=== PATIENT | female | born 1955 | race Caucasian/White ===

== ENCOUNTER 2016-05-04 15:26 | Inpatient (IN) | payer MEDICARE, OTHER, MEDICAID ==
[~2016-05-04] VITALS: Ht 154.9 cm; Wt 68.0 kg
[2016-05-04 16:20] LABS: BASO % 0.1 % (0.1-1.2); EOS # 0.1 10_X3_uL (0.0-0.4); EOS % 0.2 % (0.7-5.8); GRAN # 19.5 10_X3_uL (1.6-6.1); GRAN % 91.5 % (34.0-71.1); HEMATOCRIT 46.4 % (34-45); HEMOGLOBIN 15.8 g/dL (11.2-15.7); LYMPH # 1.2 10_X3_uL (1.2-3.7); LYMPH % 5.5 % (19.3-51.7); MEAN CORPUSCULAR HEMOGLOBIN 30.1 pg (27.0-33.0); MEAN CORPUSCULAR HGB CONC 34.1 g/dL (32.0-36.0); MEAN CORPUSCULAR VOLUME 88.4 fL (79-95); MEAN PLATELET VOLUME 11.5 fl (7.5-11.5); MONO # 0.6 10_X3_uL (0.2-0.9); MONO % 2.7 % (4.7-12.5); PLATELET COUNT 319 x10_3/uL (182-369); RED BLOOD COUNT 5.25 x10_6/uL (3.9-5.2)
[2016-05-04 16:38] LABS: WHITE BLOOD COUNT 21.3 x10_3/uL (4.0-10.0)
[2016-05-04 16:40] LABS: ALBUMIN 3.8 gm/dL (3.4-5.0); ALKALINE PHOSPHATASE 82 U/L (50-136); ALT/SGPT 8 U/L (3.5-33.9); AST/SGOT 7 U/L (7.04-26.96); BILIRUBIN,TOTAL < 0.15 mg/dL (0.0-1.0); BLOOD UREA NITROGEN 34 mg/dL (7-18); CALCIUM 8.7 mg/dL (8.7-10.7); CARBON DIOXIDE 21 mmol/L (21-32); CREATINE KINASE 19 U/L (21-215); CREATININE 0.8 mg/dL (0.6-1.3); GLUCOSE,RANDOM 107 mg/dL (70-99); POTASSIUM 3.9 mmol/L (3.5-5.1); SODIUM 141 mmol/L (136-145); TOTAL PROTEIN 6.2 gm/dL (6.4-8.2)
[2016-05-06 06:42] LABS: HEMATOCRIT 42.9 % (34-45); HEMOGLOBIN 14.4 g/dL (11.2-15.7); MEAN CORPUSCULAR HEMOGLOBIN 29.4 pg (27.0-33.0); MEAN CORPUSCULAR HGB CONC 33.6 g/dL (32.0-36.0); MEAN CORPUSCULAR VOLUME 87.6 fL (79-95); MEAN PLATELET VOLUME 12.3 fl (7.5-11.5); RED BLOOD COUNT 4.9 x10_6/uL (3.9-5.2); WHITE BLOOD COUNT 19.8 x10_3/uL (4.0-10.0)
[2016-05-06 07:01] LABS: ALBUMIN 3.3 gm/dL (3.4-5.0); ALKALINE PHOSPHATASE 74 U/L (50-136); ALT/SGPT 11 U/L (3.5-33.9); AST/SGOT 9 U/L (7.04-26.96); CALCIUM 8.6 mg/dL (8.7-10.7); CARBON DIOXIDE 20 mmol/L (21-32); CREATININE 0.6 mg/dL (0.6-1.3); GLUCOSE,RANDOM 139 mg/dL (70-99); POTASSIUM 4.7 mmol/L (3.5-5.1); SODIUM 141 mmol/L (136-145); TOTAL PROTEIN 5.7 gm/dL (6.4-8.2)
[2016-05-06 07:20] LABS: BILIRUBIN,TOTAL < 0.15 mg/dL (0.0-1.0); BLOOD UREA NITROGEN 24 mg/dL (7-18)
[2016-05-07 06:40] LABS: HEMATOCRIT 42.4 % (34-45); HEMOGLOBIN 14.5 g/dL (11.2-15.7); MEAN CORPUSCULAR HEMOGLOBIN 30.1 pg (27.0-33.0); MEAN CORPUSCULAR HGB CONC 34.2 g/dL (32.0-36.0); MEAN PLATELET VOLUME 11.7 fl (7.5-11.5); RED BLOOD COUNT 4.82 x10_6/uL (3.9-5.2); RED CELL DISTRIBUTION WIDTH 14.9 % (11.7-14.4); WHITE BLOOD COUNT 19.3 x10_3/uL (4.0-10.0)
[2016-05-07 07:08] LABS: BLOOD UREA NITROGEN 24 mg/dL (7-18); CALCIUM 8.6 mg/dL (8.7-10.7); CARBON DIOXIDE 23 mmol/L (21-32); CREATININE 0.7 mg/dL (0.6-1.3); GLUCOSE,RANDOM 112 mg/dL (70-99); POTASSIUM 4.4 mmol/L (3.5-5.1); SODIUM 139 mmol/L (136-145)
[2016-05-08 07:17] LABS: HEMATOCRIT 42.4 % (34-45); HEMOGLOBIN 14.2 g/dL (11.2-15.7); MEAN CORPUSCULAR HEMOGLOBIN 29.8 pg (27.0-33.0); MEAN CORPUSCULAR HGB CONC 33.5 g/dL (32.0-36.0); MEAN CORPUSCULAR VOLUME 88.9 fL (79-95); MEAN PLATELET VOLUME 11.7 fl (7.5-11.5); RED BLOOD COUNT 4.77 x10_6/uL (3.9-5.2); RED CELL DISTRIBUTION WIDTH 15.2 % (11.7-14.4)
[2016-05-08 10:17] LABS: BLOOD UREA NITROGEN 27 mg/dL (7-18); CALCIUM 8.5 mg/dL (8.7-10.7); CARBON DIOXIDE 24 mmol/L (21-32); CREATININE 0.6 mg/dL (0.6-1.3); GLUCOSE,RANDOM 111 mg/dL (70-99); POTASSIUM 5.1 mmol/L (3.5-5.1); SODIUM 142 mmol/L (136-145)
== END 2016-05-08 13:10 | disposition home or self-care (01) | DRG 192 ==
LOC: ER 15:26 → MS 20:59 → UNDODEPER 05-07 08:23 → MS 05-08 13:10
PROVIDERS: Emergency Medicine; Family Medicine; ADMIT Family Medicine
DX: J44.1 Chronic obstructive pulmonary disease with (acute) exacerbation (principal); J20.9 Acute bronchitis, unspecified; J44.0 Chronic obstructive pulmonary disease with (acute) lower respiratory infection; F41.9 Anxiety disorder, unspecified; D72.829 Elevated white blood cell count, unspecified; M54.40 Lumbago with sciatica, unspecified side; G89.29 Other chronic pain; M51.36 Other intervertebral disc degeneration, lumbar region; R91.8 Other nonspecific abnormal finding of lung field; R52 Pain, unspecified; Z83.3 Family history of diabetes mellitus; Z80.9 Family history of malignant neoplasm, unspecified; Z99.81 Dependence on supplemental oxygen
CPT/HCPCS: 36415; 71020; 71250; 72131; 80048; 80053; 82550; 82553; 83605; 83880; 85025; 86738; 87040; 87400; 87449; 93005; 94640; 94664; 96365; 96375; 99070; 99284; 99285-25; J2930

== ENCOUNTER 2016-05-04 15:26 | Emergency (ER) | payer MEDICARE, OTHER | END 2016-05-04 20:59 | disposition other institution (70) | LOC: ER 15:26 | DX: J44.0 Chronic obstructive pulmonary disease with (acute) lower respiratory infection (principal); J18.9 Pneumonia, unspecified organism; R00.0 Tachycardia, unspecified; I50.9 Heart failure, unspecified; F17.210 Nicotine dependence, cigarettes, uncomplicated; Z99.81 Dependence on supplemental oxygen | CPT/HCPCS: 99284; 99285-25 ==

== ENCOUNTER 2016-05-13 15:23 | Emergency (ER) | payer MEDICARE, OTHER | END 2016-05-13 17:20 | disposition other institution (70) | LOC: ER 15:23 | DX: J44.0 Chronic obstructive pulmonary disease with (acute) lower respiratory infection (principal); J18.9 Pneumonia, unspecified organism; J44.1 Chronic obstructive pulmonary disease with (acute) exacerbation; I50.9 Heart failure, unspecified; F17.210 Nicotine dependence, cigarettes, uncomplicated; Z79.899 Other long term (current) drug therapy; Z99.81 Dependence on supplemental oxygen | CPT/HCPCS: 99285; 99285-25 ==

== ENCOUNTER 2016-05-13 15:23 | Inpatient (IN) | payer MEDICARE, MEDICAID, OTHER ==
[~2016-05-13] VITALS: Ht 154.9 cm; Wt 70.0 kg
[2016-05-13 15:58] LABS: BASO % 0.1 % (0.1-1.2); EOS # 0.6 10_X3_uL (0.0-0.4); EOS % 2.8 % (0.7-5.8); GRAN # 15.1 10_X3_uL (1.6-6.1); GRAN % 66.9 % (34.0-71.1); HEMATOCRIT 41.2 % (34-45); HEMOGLOBIN 13.7 g/dL (11.2-15.7); LYMPH # 4.8 10_X3_uL (1.2-3.7); LYMPH % 21.1 % (19.3-51.7); MEAN CORPUSCULAR HEMOGLOBIN 30.1 pg (27.0-33.0); MEAN CORPUSCULAR HGB CONC 33.3 g/dL (32.0-36.0); MEAN CORPUSCULAR VOLUME 90.5 fL (79-95); MEAN PLATELET VOLUME 11.1 fl (7.5-11.5); MONO # 2.1 10_X3_uL (0.2-0.9); MONO % 9.1 % (4.7-12.5); PLATELET COUNT 220 x10_3/uL (182-369); RED BLOOD COUNT 4.55 x10_6/uL (3.9-5.2); RED CELL DISTRIBUTION WIDTH 14.9 % (11.7-14.4)
[2016-05-13 16:00] LABS: WHITE BLOOD COUNT 22.6 x10_3/uL (4.0-10.0)
[2016-05-13 16:12] LABS: ALBUMIN 3.8 gm/dL (3.4-5.0); ALKALINE PHOSPHATASE 86 U/L (50-136); ALT/SGPT 17 U/L (3.5-33.9); AST/SGOT 9 U/L (7.04-26.96); BILIRUBIN,TOTAL 0.24 mg/dL (0.0-1.0); BLOOD UREA NITROGEN 22 mg/dL (7-18); CALCIUM 9.2 mg/dL (8.7-10.7); CARBON DIOXIDE 24 mmol/L (21-32); CREATINE KINASE 31 U/L (21-215); CREATININE 0.6 mg/dL (0.6-1.3); GLUCOSE,RANDOM 108 mg/dL (70-99); POTASSIUM 4.4 mmol/L (3.5-5.1); SODIUM 135 mmol/L (136-145); TOTAL PROTEIN 6.7 gm/dL (6.4-8.2)
[2016-05-13 16:33] LABS: URINE BILIRUBIN NEGATIVE (NEGATIVE); URINE BLOOD TRACE (NEGATIVE); URINE GLUCOSE (UA) NORMAL (NORMAL); URINE KETONE NEGATIVE (NEGATIVE); URINE LEUKOCYTE ESTERASE NEGATIVE (NEGATIVE); URINE NITRATE NEGATIVE (NEGATIVE); URINE PROTEIN NEGATIVE (NEGATIVE); UROBILINOGEN NORMAL mg/dL (<1.0)
[2016-05-13 16:46] LABS: URINE BACTERIA TRACE (NONE SEEN); URINE RBC 0-5 /[HPF] (0-2); URINE SQUAMOUS EPITHELIAL CELL 0-10 /[HPF] (NONE SEEN); URINE WBC 0-5 /[HPF] (0-5)
[2016-05-15 06:56] LABS: HEMATOCRIT 38.6 % (34-45); HEMOGLOBIN 12.6 g/dL (11.2-15.7); MEAN CORPUSCULAR HEMOGLOBIN 29.9 pg (27.0-33.0); MEAN CORPUSCULAR HGB CONC 32.6 g/dL (32.0-36.0); MEAN CORPUSCULAR VOLUME 91.5 fL (79-95); MEAN PLATELET VOLUME 11.6 fl (7.5-11.5); RED BLOOD COUNT 4.22 x10_6/uL (3.9-5.2); WHITE BLOOD COUNT 18.9 x10_3/uL (4.0-10.0)
[2016-05-15 07:08] LABS: BLOOD UREA NITROGEN 20 mg/dL (7-18); CALCIUM 8.9 mg/dL (8.7-10.7); CARBON DIOXIDE 23 mmol/L (21-32); CREATININE 0.8 mg/dL (0.6-1.3); GLUCOSE,RANDOM 173 mg/dL (70-99); POTASSIUM 4.1 mmol/L (3.5-5.1); SODIUM 142 mmol/L (136-145)
[2016-05-16 06:48] LABS: BLOOD UREA NITROGEN 23 mg/dL (7-18); CARBON DIOXIDE 23 mmol/L (21-32); CREATININE 0.6 mg/dL (0.6-1.3); GLUCOSE,RANDOM 157 mg/dL (70-99); POTASSIUM 4.3 mmol/L (3.5-5.1); SODIUM 142 mmol/L (136-145)
[2016-05-16 07:07] LABS: HEMATOCRIT 39.5 % (34-45); MEAN CORPUSCULAR HEMOGLOBIN 29.9 pg (27.0-33.0); MEAN CORPUSCULAR HGB CONC 32.9 g/dL (32.0-36.0); MEAN CORPUSCULAR VOLUME 90.8 fL (79-95); MEAN PLATELET VOLUME 11.6 fl (7.5-11.5); RED BLOOD COUNT 4.35 x10_6/uL (3.9-5.2); RED CELL DISTRIBUTION WIDTH 15.5 % (11.7-14.4); WHITE BLOOD COUNT 19.3 x10_3/uL (4.0-10.0)
[2016-05-17 07:29] LABS: HEMATOCRIT 41.3 % (34-45); HEMOGLOBIN 13.5 g/dL (11.2-15.7); MEAN CORPUSCULAR HEMOGLOBIN 29.3 pg (27.0-33.0); MEAN CORPUSCULAR HGB CONC 32.7 g/dL (32.0-36.0); MEAN CORPUSCULAR VOLUME 89.8 fL (79-95); RED BLOOD COUNT 4.6 x10_6/uL (3.9-5.2); RED CELL DISTRIBUTION WIDTH 15.9 % (11.7-14.4); WHITE BLOOD COUNT 14.7 x10_3/uL (4.0-10.0)
[2016-05-17 07:47] LABS: BLOOD UREA NITROGEN 23 mg/dL (7-18); CARBON DIOXIDE 24 mmol/L (21-32); CREATININE 0.6 mg/dL (0.6-1.3); GLUCOSE,RANDOM 101 mg/dL (70-99); POTASSIUM 4.5 mmol/L (3.5-5.1); SODIUM 140 mmol/L (136-145)
[2016-05-18 07:04] LABS: HEMATOCRIT 40.3 % (34-45); HEMOGLOBIN 13.1 g/dL (11.2-15.7); MEAN CORPUSCULAR HEMOGLOBIN 29.4 pg (27.0-33.0); MEAN CORPUSCULAR HGB CONC 32.5 g/dL (32.0-36.0); MEAN CORPUSCULAR VOLUME 90.6 fL (79-95); MEAN PLATELET VOLUME 10.7 fl (7.5-11.5); RED BLOOD COUNT 4.45 x10_6/uL (3.9-5.2); RED CELL DISTRIBUTION WIDTH 15.8 % (11.7-14.4); WHITE BLOOD COUNT 13.2 x10_3/uL (4.0-10.0)
[2016-05-18 07:19] LABS: BLOOD UREA NITROGEN 26 mg/dL (7-18); CALCIUM 8.6 mg/dL (8.7-10.7); CARBON DIOXIDE 25 mmol/L (21-32); CREATININE 0.6 mg/dL (0.6-1.3); GLUCOSE,RANDOM 102 mg/dL (70-99); POTASSIUM 4.4 mmol/L (3.5-5.1); SODIUM 140 mmol/L (136-145)
== END 2016-05-18 11:05 | disposition home or self-care (01) | DRG 190 ==
LOC: ER 15:23 → MS 17:20
PROVIDERS: Internal Medicine; ADMIT Family Medicine
PROC: 3E0234Z Introduction of Serum, Toxoid and Vaccine into Muscle, Percutaneous Approach (ICD-10-PCS; principal; 2016-05-14)
DX: J44.0 Chronic obstructive pulmonary disease with (acute) lower respiratory infection (principal); J18.9 Pneumonia, unspecified organism; K92.1 Melena; J44.1 Chronic obstructive pulmonary disease with (acute) exacerbation; D72.829 Elevated white blood cell count, unspecified; I11.0 Hypertensive heart disease with heart failure; I50.9 Heart failure, unspecified; R35.0 Frequency of micturition; G89.29 Other chronic pain; M54.9 Dorsalgia, unspecified; R63.5 Abnormal weight gain; F41.9 Anxiety disorder, unspecified; F32.9 Major depressive disorder, single episode, unspecified; R00.0 Tachycardia, unspecified; R00.2 Palpitations; M51.36 Other intervertebral disc degeneration, lumbar region; M48.06 Spinal stenosis, lumbar region; M25.50 Pain in unspecified joint; R11.10 Vomiting, unspecified; R51 Headache; F17.210 Nicotine dependence, cigarettes, uncomplicated; Z79.899 Other long term (current) drug therapy; Z90.710 Acquired absence of both cervix and uterus; Z80.3 Family history of malignant neoplasm of breast; Z82.3 Family history of stroke; Z68.29 Body mass index [BMI] 29.0-29.9, adult; Z23 Encounter for immunization
CPT/HCPCS: 36415; 71010; 80048; 80053; 81001; 82550; 82553; 83605; 83880; 85025; 85379; 86738; 87040; 87449; 93005; 94640; 94664; 96365; 96375; 99070; 99285; 99285-25; J2930

== ENCOUNTER 2016-05-20 13:38 | Emergency (ER) | payer MEDICARE, OTHER, MEDICAID | END 2016-05-20 15:32 | disposition home or self-care (01) | LOC: ER 13:38 | DX: J44.0 Chronic obstructive pulmonary disease with (acute) lower respiratory infection (principal); J20.9 Acute bronchitis, unspecified; J44.1 Chronic obstructive pulmonary disease with (acute) exacerbation; I10 Essential (primary) hypertension; F17.210 Nicotine dependence, cigarettes, uncomplicated; Z79.899 Other long term (current) drug therapy | CPT/HCPCS: 71020; 94664; 96372; 99284; 99284-25 ==

== ENCOUNTER 2016-05-23 10:39 | Inpatient (IN) | payer MEDICARE, MEDICAID, OTHER ==
[~2016-05-23] VITALS: Ht 152.4 cm; Wt 64.0 kg
[2016-05-23 12:05] LABS: BASO % 0.2 % (0.1-1.2); EOS % 0.3 % (0.7-5.8); GRAN # 6.9 10_X3_uL (1.6-6.1); GRAN % 78.6 % (34.0-71.1); HEMATOCRIT 44.5 % (34-45); HEMOGLOBIN 15.1 g/dL (11.2-15.7); LYMPH # 1.1 10_X3_uL (1.2-3.7); MEAN CORPUSCULAR HEMOGLOBIN 29.6 pg (27.0-33.0); MEAN CORPUSCULAR HGB CONC 33.9 g/dL (32.0-36.0); MEAN CORPUSCULAR VOLUME 87.3 fL (79-95); MEAN PLATELET VOLUME 10.5 fl (7.5-11.5); MONO # 0.8 10_X3_uL (0.2-0.9); MONO % 8.9 % (4.7-12.5); PLATELET COUNT 225 x10_3/uL (182-369); RED CELL DISTRIBUTION WIDTH 15.6 % (11.7-14.4); WHITE BLOOD COUNT 8.8 x10_3/uL (4.0-10.0)
[2016-05-23 12:22] LABS: ALBUMIN 3.6 gm/dL (3.4-5.0); ALKALINE PHOSPHATASE 88 U/L (50-136); ALT/SGPT 20 U/L (3.5-33.9); AST/SGOT 15 U/L (7.04-26.96); BILIRUBIN,TOTAL 0.45 mg/dL (0.0-1.0); BLOOD UREA NITROGEN 15 mg/dL (7-18); CALCIUM 8.8 mg/dL (8.7-10.7); CARBON DIOXIDE 23 mmol/L (21-32); CREATININE 0.6 mg/dL (0.6-1.3); GLUCOSE,RANDOM 98 mg/dL (70-99); POTASSIUM 3.8 mmol/L (3.5-5.1); SODIUM 130 mmol/L (136-145)
[2016-05-23 13:26] LABS: ARTERIAL BLD GAS O2 SATURATION 91.3 % (94-98); ARTERIAL BLOOD GAS BASE EXCESS -0.2 mmol/L (-2.0-3.0); ARTERIAL BLOOD GAS HCO3 23.4 mmol/L (22-26); ARTERIAL BLOOD GAS PCO2 36.8 mmHg (32-45); ARTERIAL BLOOD GAS pH 7.42 (7.35-7.45)
[2016-05-24 07:38] LABS: BASO % 0.2 % (0.1-1.2); EOS # 0.2 10_X3_uL (0.0-0.4); EOS % 3.4 % (0.7-5.8); GRAN # 3.8 10_X3_uL (1.6-6.1); GRAN % 70.8 % (34.0-71.1); HEMATOCRIT 41.5 % (34-45); HEMOGLOBIN 14.1 g/dL (11.2-15.7); LYMPH # 0.6 10_X3_uL (1.2-3.7); LYMPH % 11.7 % (19.3-51.7); MEAN CORPUSCULAR HEMOGLOBIN 29.4 pg (27.0-33.0); MEAN CORPUSCULAR VOLUME 86.5 fL (79-95); MEAN PLATELET VOLUME 10.9 fl (7.5-11.5); MONO # 0.7 10_X3_uL (0.2-0.9); MONO % 13.9 % (4.7-12.5); PLATELET COUNT 214 x10_3/uL (182-369); RED CELL DISTRIBUTION WIDTH 15.3 % (11.7-14.4); WHITE BLOOD COUNT 5.3 x10_3/uL (4.0-10.0)
[2016-05-24 07:55] LABS: BLOOD UREA NITROGEN 15 mg/dL (7-18); CALCIUM 8.6 mg/dL (8.7-10.7); CARBON DIOXIDE 20 mmol/L (21-32); CREATININE 0.5 mg/dL (0.6-1.3); GLUCOSE,RANDOM 113 mg/dL (70-99); POTASSIUM 4.4 mmol/L (3.5-5.1); SODIUM 134 mmol/L (136-145)
[2016-05-25 07:29] LABS: HEMATOCRIT 37.9 % (34-45); HEMOGLOBIN 12.3 g/dL (11.2-15.7); MEAN CORPUSCULAR HEMOGLOBIN 28.9 pg (27.0-33.0); MEAN CORPUSCULAR HGB CONC 32.5 g/dL (32.0-36.0); MEAN CORPUSCULAR VOLUME 89.2 fL (79-95); MEAN PLATELET VOLUME 10.9 fl (7.5-11.5); RED BLOOD COUNT 4.25 x10_6/uL (3.9-5.2); RED CELL DISTRIBUTION WIDTH 15.5 % (11.7-14.4); WHITE BLOOD COUNT 7.6 x10_3/uL (4.0-10.0)
[2016-05-25 07:47] LABS: BLOOD UREA NITROGEN 17 mg/dL (7-18); CALCIUM 8.1 mg/dL (8.7-10.7); CARBON DIOXIDE 22 mmol/L (21-32); CREATININE 0.6 mg/dL (0.6-1.3); GLUCOSE,RANDOM 75 mg/dL (70-99); POTASSIUM 4.2 mmol/L (3.5-5.1); SODIUM 136 mmol/L (136-145)
[2016-05-27 09:46] LABS: HEMATOCRIT 44.6 % (34-45); HEMOGLOBIN 15.6 g/dL (11.2-15.7); MEAN CORPUSCULAR HEMOGLOBIN 30.6 pg (27.0-33.0); MEAN CORPUSCULAR VOLUME 87.6 fL (79-95); RED BLOOD COUNT 5.09 x10_6/uL (3.9-5.2); RED CELL DISTRIBUTION WIDTH 15.6 % (11.7-14.4); WHITE BLOOD COUNT 9.7 x10_3/uL (4.0-10.0)
[2016-05-27 10:53] LABS: BLOOD UREA NITROGEN 10 mg/dL (7-18); CARBON DIOXIDE 26 mmol/L (21-32); CREATININE 0.7 mg/dL (0.6-1.3); GLUCOSE,RANDOM 75 mg/dL (70-99); POTASSIUM 4.2 mmol/L (3.5-5.1); SODIUM 135 mmol/L (136-145)
== END 2016-05-27 15:00 | disposition home or self-care (01) | DRG 194 ==
LOC: ER 10:39 → MS 14:59 → UNDODEPER 05-26 15:41 → MS 05-27 15:00
PROVIDERS: Emergency Medicine; Family Medicine; ADMIT Family Medicine
DX: J10.1 Influenza due to other identified influenza virus with other respiratory manifestations (principal); J44.1 Chronic obstructive pulmonary disease with (acute) exacerbation; Z99.81 Dependence on supplemental oxygen; I10 Essential (primary) hypertension; Z79.899 Other long term (current) drug therapy; F41.9 Anxiety disorder, unspecified; F17.210 Nicotine dependence, cigarettes, uncomplicated
CPT/HCPCS: 36415; 36600; 71020; 80048; 80053; 82803; 83605; 85025; 86738; 87040; 87070; 87205; 87400; 87449; 93005; 94640; 94664; 96365; 96375; 99070; 99284; 99284-25; J2930

== ENCOUNTER 2016-05-23 10:39 | Emergency (ER) | payer MEDICARE, OTHER | END 2016-05-23 14:59 | disposition other institution (70) | LOC: ER 10:39 | DX: J44.0 Chronic obstructive pulmonary disease with (acute) lower respiratory infection (principal); J20.9 Acute bronchitis, unspecified; J44.1 Chronic obstructive pulmonary disease with (acute) exacerbation; J10.1 Influenza due to other identified influenza virus with other respiratory manifestations; I11.0 Hypertensive heart disease with heart failure; I50.9 Heart failure, unspecified; F17.210 Nicotine dependence, cigarettes, uncomplicated; Z90.710 Acquired absence of both cervix and uterus; Z79.899 Other long term (current) drug therapy | CPT/HCPCS: 99284; 99284-25 ==

== ENCOUNTER 2016-07-01 15:19 | Emergency (ER) | payer MEDICARE, OTHER | END 2016-07-01 16:30 | disposition home or self-care (01) | LOC: ER 15:19 | DX: J44.0 Chronic obstructive pulmonary disease with (acute) lower respiratory infection (principal); J20.9 Acute bronchitis, unspecified; I10 Essential (primary) hypertension; Z90.710 Acquired absence of both cervix and uterus; F17.210 Nicotine dependence, cigarettes, uncomplicated | CPT/HCPCS: 71020; 94664; 96372; 99283-25; 99284 ==

== ENCOUNTER 2016-07-22 07:55 | Inpatient (IN) | payer MEDICARE, OTHER ==
[~2016-07-22] VITALS: Ht 154.9 cm; Wt 62.0 kg
[2016-07-22 08:26] LABS: BASO # 0.1 10_X3_uL (0.0-0.1); EOS # 1.1 10_X3_uL (0.0-0.4); EOS % 10.1 % (0.7-5.8); GRAN % 66.4 % (34.0-71.1); HEMATOCRIT 42.1 % (34-45); LYMPH # 1.7 10_X3_uL (1.2-3.7); LYMPH % 16.3 % (19.3-51.7); MEAN CORPUSCULAR HEMOGLOBIN 29.2 pg (27.0-33.0); MEAN CORPUSCULAR HGB CONC 33.3 g/dL (32.0-36.0); MEAN CORPUSCULAR VOLUME 87.7 fL (79-95); MEAN PLATELET VOLUME 11.3 fl (7.5-11.5); MONO # 0.7 10_X3_uL (0.2-0.9); MONO % 6.2 % (4.7-12.5); PLATELET COUNT 359 x10_3/uL (182-369); RED CELL DISTRIBUTION WIDTH 14.6 % (11.7-14.4); WHITE BLOOD COUNT 10.6 x10_3/uL (4.0-10.0)
[2016-07-22 08:39] LABS: BLOOD UREA NITROGEN 11 mg/dL (7-18); CALCIUM 9.4 mg/dL (8.7-10.7); CARBON DIOXIDE 21 mmol/L (21-32); CREATINE KINASE 33 U/L (21-215); CREATININE 0.6 mg/dL (0.6-1.3); GLUCOSE,RANDOM 105 mg/dL (70-99); POTASSIUM 3.6 mmol/L (3.5-5.1); SODIUM 142 mmol/L (136-145)
[2016-07-24 06:21] LABS: HEMATOCRIT 42.3 % (34-45); HEMOGLOBIN 13.8 g/dL (11.2-15.7); MEAN CORPUSCULAR HEMOGLOBIN 28.8 pg (27.0-33.0); MEAN CORPUSCULAR HGB CONC 32.6 g/dL (32.0-36.0); MEAN CORPUSCULAR VOLUME 88.1 fL (79-95); MEAN PLATELET VOLUME 11.5 fl (7.5-11.5); RED BLOOD COUNT 4.8 x10_6/uL (3.9-5.2); RED CELL DISTRIBUTION WIDTH 14.6 % (11.7-14.4); WHITE BLOOD COUNT 10.5 x10_3/uL (4.0-10.0)
[2016-07-24 06:32] LABS: CALCIUM 9.1 mg/dL (8.7-10.7); CARBON DIOXIDE 21 mmol/L (21-32); CREATININE 0.8 mg/dL (0.6-1.3); GLUCOSE,RANDOM 170 mg/dL (70-99); SODIUM 137 mmol/L (136-145)
[2016-07-24 07:05] LABS: BLOOD UREA NITROGEN 20 mg/dL (7-18)
[2016-07-24 07:06] LABS: POTASSIUM 5.1 mmol/L (3.5-5.1)
[2016-07-25 07:02] LABS: HEMATOCRIT 42.3 % (34-45); HEMOGLOBIN 13.8 g/dL (11.2-15.7); MEAN CORPUSCULAR HEMOGLOBIN 29.2 pg (27.0-33.0); MEAN CORPUSCULAR HGB CONC 32.6 g/dL (32.0-36.0); MEAN CORPUSCULAR VOLUME 89.4 fL (79-95); MEAN PLATELET VOLUME 11.7 fl (7.5-11.5); RED BLOOD COUNT 4.73 x10_6/uL (3.9-5.2); RED CELL DISTRIBUTION WIDTH 14.8 % (11.7-14.4); WHITE BLOOD COUNT 11.7 x10_3/uL (4.0-10.0)
[2016-07-25 07:17] LABS: ALBUMIN 3.7 gm/dL (3.4-5.0); ALKALINE PHOSPHATASE 72 U/L (50-136); ALT/SGPT 6 U/L (3.5-33.9); AST/SGOT 6 U/L (7.04-26.96); BLOOD UREA NITROGEN 23 mg/dL (7-18); CALCIUM 9.4 mg/dL (8.7-10.7); CARBON DIOXIDE 24 mmol/L (21-32); CREATININE 0.7 mg/dL (0.6-1.3); GLUCOSE,RANDOM 119 mg/dL (70-99); POTASSIUM 4.9 mmol/L (3.5-5.1); SODIUM 143 mmol/L (136-145); TOTAL PROTEIN 6.7 gm/dL (6.4-8.2)
[2016-07-25 07:21] LABS: BILIRUBIN,TOTAL < 0.15 mg/dL (0.0-1.0)
[2016-07-26 06:51] LABS: HEMATOCRIT 42.6 % (34-45); MEAN CORPUSCULAR HEMOGLOBIN 29.1 pg (27.0-33.0); MEAN CORPUSCULAR HGB CONC 32.9 g/dL (32.0-36.0); MEAN CORPUSCULAR VOLUME 88.6 fL (79-95); MEAN PLATELET VOLUME 11.8 fl (7.5-11.5); RED BLOOD COUNT 4.81 x10_6/uL (3.9-5.2); RED CELL DISTRIBUTION WIDTH 14.7 % (11.7-14.4); WHITE BLOOD COUNT 15.6 x10_3/uL (4.0-10.0)
[2016-07-26 07:25] LABS: ALBUMIN 3.7 gm/dL (3.4-5.0); ALKALINE PHOSPHATASE 71 U/L (50-136); ALT/SGPT 11 U/L (3.5-33.9); AST/SGOT 10 U/L (7.04-26.96); BILIRUBIN,TOTAL < 0.15 mg/dL (0.0-1.0); BLOOD UREA NITROGEN 24 mg/dL (7-18); CALCIUM 8.9 mg/dL (8.7-10.7); CARBON DIOXIDE 21 mmol/L (21-32); CREATININE 0.7 mg/dL (0.6-1.3); GLUCOSE,RANDOM 163 mg/dL (70-99); POTASSIUM 4.1 mmol/L (3.5-5.1); SODIUM 141 mmol/L (136-145); TOTAL PROTEIN 6.6 gm/dL (6.4-8.2)
[2016-07-27 07:14] LABS: HEMATOCRIT 41.9 % (34-45); HEMOGLOBIN 13.9 g/dL (11.2-15.7); MEAN CORPUSCULAR HEMOGLOBIN 29.3 pg (27.0-33.0); MEAN CORPUSCULAR HGB CONC 33.2 g/dL (32.0-36.0); MEAN CORPUSCULAR VOLUME 88.4 fL (79-95); MEAN PLATELET VOLUME 11.9 fl (7.5-11.5); RED BLOOD COUNT 4.74 x10_6/uL (3.9-5.2); RED CELL DISTRIBUTION WIDTH 14.6 % (11.7-14.4); WHITE BLOOD COUNT 18.4 x10_3/uL (4.0-10.0)
[2016-07-27 07:21] LABS: BLOOD UREA NITROGEN 28 mg/dL (7-18); CALCIUM 9.1 mg/dL (8.7-10.7); CARBON DIOXIDE 22 mmol/L (21-32); CREATININE 0.6 mg/dL (0.6-1.3); GLUCOSE,RANDOM 96 mg/dL (70-99); POTASSIUM 4.1 mmol/L (3.5-5.1); SODIUM 138 mmol/L (136-145)
[2016-07-27 13:11] LABS: URINE BILIRUBIN NEGATIVE (NEGATIVE); URINE BLOOD NEGATIVE (NEGATIVE); URINE GLUCOSE (UA) NORMAL (NORMAL); URINE KETONE NEGATIVE (NEGATIVE); URINE LEUKOCYTE ESTERASE NEGATIVE (NEGATIVE); URINE NITRATE NEGATIVE (NEGATIVE); URINE PROTEIN NEGATIVE (NEGATIVE); UROBILINOGEN NORMAL mg/dL (<1.0)
[2016-07-28 06:28] LABS: EOS % 0.1 % (0.7-5.8); GRAN # 16.2 10_X3_uL (1.6-6.1); GRAN % 77.2 % (34.0-71.1); HEMATOCRIT 39.8 % (34-45); HEMOGLOBIN 13.1 g/dL (11.2-15.7); LYMPH # 1.9 10_X3_uL (1.2-3.7); LYMPH % 9.3 % (19.3-51.7); MEAN CORPUSCULAR HEMOGLOBIN 29.4 pg (27.0-33.0); MEAN CORPUSCULAR HGB CONC 32.9 g/dL (32.0-36.0); MEAN CORPUSCULAR VOLUME 89.4 fL (79-95); MEAN PLATELET VOLUME 11.7 fl (7.5-11.5); MONO # 2.8 10_X3_uL (0.2-0.9); MONO % 13.4 % (4.7-12.5); PLATELET COUNT 320 x10_3/uL (182-369); RED BLOOD COUNT 4.45 x10_6/uL (3.9-5.2); RED CELL DISTRIBUTION WIDTH 14.8 % (11.7-14.4)
[2016-07-28 06:36] LABS: CALCIUM 8.4 mg/dL (8.7-10.7); CARBON DIOXIDE 25 mmol/L (21-32); CREATININE 0.7 mg/dL (0.6-1.3); GLUCOSE,RANDOM 112 mg/dL (70-99); POTASSIUM 3.7 mmol/L (3.5-5.1); SODIUM 144 mmol/L (136-145)
[2016-07-28 06:44] LABS: BLOOD UREA NITROGEN 20 mg/dL (7-18)
[2016-07-28 18:07] LABS: BASO % 0.1 % (0.1-1.2); EOS % 0.1 % (0.7-5.8); HEMATOCRIT 40.9 % (34-45); HEMOGLOBIN 13.4 g/dL (11.2-15.7); LYMPH # 0.6 10_X3_uL (1.2-3.7); LYMPH % 3.7 % (19.3-51.7); MEAN CORPUSCULAR HEMOGLOBIN 29.3 pg (27.0-33.0); MEAN CORPUSCULAR HGB CONC 32.8 g/dL (32.0-36.0); MEAN CORPUSCULAR VOLUME 89.3 fL (79-95); MEAN PLATELET VOLUME 11.7 fl (7.5-11.5); MONO # 0.8 10_X3_uL (0.2-0.9); MONO % 5.1 % (4.7-12.5); PLATELET COUNT 333 x10_3/uL (182-369); RED BLOOD COUNT 4.58 x10_6/uL (3.9-5.2); RED CELL DISTRIBUTION WIDTH 14.8 % (11.7-14.4); WHITE BLOOD COUNT 16.5 x10_3/uL (4.0-10.0)
[2016-07-29 08:15] LABS: HEMATOCRIT 38.9 % (34-45); HEMOGLOBIN 12.9 g/dL (11.2-15.7); MEAN CORPUSCULAR HEMOGLOBIN 29.4 pg (27.0-33.0); MEAN CORPUSCULAR HGB CONC 33.2 g/dL (32.0-36.0); MEAN CORPUSCULAR VOLUME 88.6 fL (79-95); MEAN PLATELET VOLUME 12.3 fl (7.5-11.5); RED BLOOD COUNT 4.39 x10_6/uL (3.9-5.2); RED CELL DISTRIBUTION WIDTH 14.9 % (11.7-14.4)
[2016-07-29 08:19] LABS: WHITE BLOOD COUNT 23.7 x10_3/uL (4.0-10.0)
[2016-07-29 08:39] LABS: BLOOD UREA NITROGEN 18 mg/dL (7-18); CALCIUM 8.4 mg/dL (8.7-10.7); CARBON DIOXIDE 25 mmol/L (21-32); CREATININE 0.6 mg/dL (0.6-1.3); GLUCOSE,RANDOM 87 mg/dL (70-99); POTASSIUM 3.7 mmol/L (3.5-5.1); SODIUM 144 mmol/L (136-145)
== END 2016-07-29 13:35 | disposition short-term general hospital (02) | DRG 190 ==
LOC: ER 07:55 → MS 09:46 → UNDODEPER 07-26 10:46 → MS 07-29 13:35
PROVIDERS: Internal Medicine; ADMIT Family Medicine
DX: J44.0 Chronic obstructive pulmonary disease with (acute) lower respiratory infection (principal); J18.9 Pneumonia, unspecified organism; J20.9 Acute bronchitis, unspecified; J44.1 Chronic obstructive pulmonary disease with (acute) exacerbation; I10 Essential (primary) hypertension; G89.29 Other chronic pain; M54.5 Low back pain; M25.512 Pain in left shoulder; M25.511 Pain in right shoulder; G47.00 Insomnia, unspecified; F41.9 Anxiety disorder, unspecified; R19.7 Diarrhea, unspecified; R11.0 Nausea; Z90.710 Acquired absence of both cervix and uterus; Z83.3 Family history of diabetes mellitus; Z80.9 Family history of malignant neoplasm, unspecified; Z82.49 Family history of ischemic heart disease and other diseases of the circulatory system; F17.210 Nicotine dependence, cigarettes, uncomplicated; Z79.899 Other long term (current) drug therapy
CPT/HCPCS: 36415; 36600; 71020; 71250; 80048; 80053; 80061; 81003; 82550; 82553; 82803; 82962; 83036; 83605; 83735; 83880; 84443; 85025; 87040; 87045; 87070; 87086; 87205; 93005; 94640; 94664; 96374; 96375; 99070; 99284; 99285-25; J2930

== ENCOUNTER 2016-07-22 07:55 | Observation (INO) | payer MEDICARE, OTHER | END 2016-07-24 11:11 | disposition other institution (70) | LOC: ER 07:55 → MS 09:46 | PROVIDERS: ADMIT Family Medicine | DX: J44.0 Chronic obstructive pulmonary disease with (acute) lower respiratory infection (principal); J18.9 Pneumonia, unspecified organism; J20.9 Acute bronchitis, unspecified; J44.1 Chronic obstructive pulmonary disease with (acute) exacerbation; I10 Essential (primary) hypertension; G89.29 Other chronic pain; M54.5 Low back pain; M25.512 Pain in left shoulder; M25.511 Pain in right shoulder; G47.00 Insomnia, unspecified; F41.9 Anxiety disorder, unspecified; R19.7 Diarrhea, unspecified; R11.0 Nausea; Z90.710 Acquired absence of both cervix and uterus; Z83.3 Family history of diabetes mellitus; Z80.9 Family history of malignant neoplasm, unspecified; Z82.49 Family history of ischemic heart disease and other diseases of the circulatory system; F17.210 Nicotine dependence, cigarettes, uncomplicated; Z79.899 Other long term (current) drug therapy | CPT/HCPCS: 36415; 71020; 80048; 82550; 82553; 83880; 85025; 87205; 93005; 94640; 94664; 96366; 96367; 96374; 96375; 96376; 99070; 99284; 99285-25; G0378; J2930 ==